=== PATIENT | male | born 1965 | race Caucasian/White ===

== ENCOUNTER 2017-10-24 05:43 | Day surgery (SDC) | payer OTHER ==
[~2017-10-24] VITALS: Ht 175.3 cm; Wt 106.6 kg
--- NOTE | ~2017-10-24 | OP ---
PATIENT NAME: ANIKA KAPLAN MEDICAL RECORD: [id number] :67 LOCATION:[facility] ADMISSION DATE: SURGEON: PRUDENCIO LEUNG DO DATE OF OPERATION: 10/24/2017 PROCEDURE PERFORMED: Right shoulder arthroscopy with subacromial decompression, labral debridement and bicep tenodesis. PREOPERATIVE DIAGNOSES: Right shoulder pain, SLAP tear, and partial rotator cuff tear on MRI. POSTOPERATIVE DIAGNOSES: SLAP tear, subacromial impingement, and no rotator cuff tear. INDICATIONS: Mr. Anika Kaplan is a 52-year-old male who presented to my office sometime ago with right shoulder pain. He had an MRI, which indicated a partial thickness tear of the rotator cuff. I informed him that we could try conservative management due to the fact the he is 52 and he had decent strength, but he has had pain with overhead motion and tried physical therapy and injection. We did that, he came back in September and said he wanted something over the shoulder. He was tired dealing with the pain, so he signed up for surgery today. DESCRIPTION OF PROCEDURE: The patient was given a block by anesthesia in the preoperative area and then taken to the OR suite, laid in the left lateral decubitus position with an axillary roll under left axilla. The right arm was prepped and draped in sterile fashion. The patient was given 900 mg of clindamycin preoperatively. After this was given, the arm was prepped and draped. A timeout was performed. Everyone was in agreement to the correct patient, the correct side, correct site, and correct procedure. After the timeout was performed, then procedure commenced with spinal needle into the right shoulder joint from the posterior aspect and inflating the joint with 60 mL of normal saline. After this was done, the posterior portal was established with an 11-blade scalpel and the trocar was entered into the joint. Camera was then entered in and a SLAP tear was seen right away and with some labral fraying. The anterior portal was established with a spinal needle and then an 11-blade scalpel. The trocar was then entered and the bicep tendon was lifted up and then SLAP tear was seen very well. Then, the bicep was brought into the joint with some fraying seen. The shoulder joint itself was inspected. The supraspinatus, infraspinatus, and subscapularis tendon were viewed and seemed to be very in good condition on the articular side and no tears whatsoever or any fraying whatsoever. After this was done, the burner was put into the shoulder joint and the bicep tendon was tenotomized at the attachment of the labrum. Then, the shaver was entered in the shoulder and the labrum was debrided, any of the fraying in the labrum was debrided at that time. I then entered the subacromial space. Lateral portal was established. A subacromial decompression was done first with the shaver cleaning out the bursa, which was quite thick and then cleaned off the acromion with a burner and then a bur to bur off the anterolateral aspect of the acromion, making it flat. After this was done, the AC joint was inspected and not to see no large spurs or stenosis was seen in that joint, so it was not decompressed. There was no distal clavicle excision done at that time. After subacromial decompression, the trocars were withdrawn and the camera was withdrawn and the bicep tenodesis began on the anterior aspect of the humerus just distal to the pectoralis major insertion. Incision was made on the skin. Careful dissection was made down to the bicep tendon OPERATIVE REPORT [id number] ANIKA KAPLAN and this was taken out of the wound and then whipstitched and a button was placed on that stitch. Then, a unicortical hole was made in the humerus and the biceps tendon button was put down into the humerus and toggled down. The biceps tendon laid flat on the humerus. Then, a free needle was used for the suture it over with the suture that had been placed through the button securing the bicep tendon to the humerus. This was tied down in the excess tendon and suture was cut at that time. The wound was thoroughly irrigated and then closed with 2-0 Vicryl in inverted interrupted fashion and then 4-0 Monocryl was run on the skin. Each of the portal sites anterior, lateral, and posterior were closed with 4-0 Monocryl in inverted interrupted pattern. Dermabond was then placed over each of the sites and then Adaptic, Telfa, and Tegaderm were placed over the wounds. The patient was placed into a sling and taken to recovery in stable condition. COMPLICATIONS: None. TRANSINT:[id number] Voice Confirmation ID: [id number] DOCUMENT ID: [id number] PRUDENCIO LEUNG DO at 1329 CC: [id number] DICTATION DATE: 10/24/17 1227 SHELL CORE AND MOLDING SUPERVISOR: 10/24/17 130[id number] [place] [address]
[2017-10-24 07:55] VITALS: BP 138/79; Ht 175.3 cm; Wt 106.6 kg
[2017-10-24] MEDS ORDERED: PERCOCET 7.5/321 TAB PO (12:20)
[2017-10-24] MEDS ORDERED: TORADOL10 MG PO (12:21)
== END 2017-10-24 14:10 | disposition home or self-care (01) ==
LOC: D.OPS 05:43 → D.PAN 09:00 → D.OPS 09:10 → D.PAN 11-03 09:00
DX: S43.431A Superior glenoid labrum lesion of right shoulder, initial encounter (principal); M75.41 Impingement syndrome of right shoulder; X58.XXXA Exposure to other specified factors, initial encounter; Z01.812 Encounter for preprocedural laboratory examination

== ENCOUNTER 2018-08-05 22:09 | Observation (INO) | payer OTHER ==
[~2018-08-05] VITALS: Ht 175.3 cm; Wt 106.8 kg
--- NOTE | ~2018-08-05 | MORECARE ---
CASE MANAGEMENT DISCHARGE SUMMARY PATIENT: ANIKA KAPLAN UNIT: [id number] ADM DATE: 08/05/18 AGE: 53 : [birth year] SEX: M ROOM/BED: D.2113 AUTHOR: MONISHA IVY PHYSICIAN: REFERRING PHYSICIAN: IZA WHIPPLE MD DATE OF SERVICE: 08/07/18 Discharge Plan Patient Name: ANIKA KAPLAN [facility] [facility] 1965 Planned Disposition: Home Anticipated Discharge Date: 08/06/18 Discharge Date: 08/06/2018 Expected LOS: 1 Initial Reviewer: [email or web address] Initial Review Date: 08/07/2018 Generated: 08/07/18 9:38 am Patient Name: ANIKA KAPLAN Page [id number] at 0838 All edits/amendments must be made on the electronic document DICTATION DATE: 08/07/18837 PLATE SETTER: JASMEET 08/07/18837 RPT#: [id number] DC DATE:08/06/18 STATUS: DIS IN [facility] [address] [place] [address] END OF REPORT
--- NOTE | ~2018-08-05 | HEMODYNAMI ---
PATIENT:ANIKA KAPLAN MEDICAL RECORD: [id number] : 67 LOCATION:[facility] D.2113 ADMISSION DATE: 08/05/18 Generatedon:08/06/201815:34 Patient name: ANIKA KAPLAN Patient #: [id number] SSN: : 1965 Date of study: 08/06/2018 Page: Of Hemodynamic Procedure Report Patient Data Patient Demographics Procedure consent was obtained First Name: ANIKA Gender: Male Last Name: [place] : 1965 Patient #: [id number] Age: 53 year(s) Race: Unknown Additional ID: [id number] Contact details [address]: [address] [place] [address] TRAIL State: [place] City: [place] Zip code: [address] Admission Admission Data Admission Date: 08/05/2018 Admission Time: 23:51 Room #: D.2113 Procedure Procedure Types Cath Procedure Diagnostic Procedure LHC LHC w/Coronaries Procedure Description Procedure Date Procedure Date: 08/06/2018 Procedure Start Time: 15:20 Procedure End Time: 15:31 Procedure Staff Name Function Pauly Salvador RT Monitor Vicente Mohr RN Nurse Irma Pack RT Scrub Antoine Norman MD Performing Physician Procedure Data Cath Procedure Fluoroscopy Diagnostic fluoroscopy Total fluoroscopy Time: 1.9 time: 1.9 min min Diagnostic fluoroscopy Total fluoroscopy dose: 703 dose: 703 mGy mGy Contrast Material Contrast Material Type Amount (ml) Isovue 300 85 Entry Location Entry Primary Successful Side Size Upsize Upsize Entry Closure Succes sful Closure Location (Fr) 1 (Fr) 2 (Fr) Remarks Device Remarks Femoral Right 5 Fr Exoseal artery Estimated blood loss: 10 ml Diagnostic catheters Device Type Used For End Catheter Placement MULTIPACK JL 4.0 5Fr Procedure catheter DIAGNOSTIC JL 5 5Fr Procedure catheter ([id number]) MULTIPACK 3DRC 5Fr Procedure catheter MULTIPACK Pigtail 5 Fr Procedure catheter Procedure Complications No complications Procedure Medications Medication Administration Route Dosage Oxygen etCO2 Nasal cannula 2 l/min Heparin Flush Bag added to field 2 bags (1000units/500ml NS) 0.9% NaCl I.V. 100 ml/hr Fentanyl I.V. 50 mcg Versed I.V. 1 mg Fentanyl I.V. 50 mcg Versed I.V. 1 mg Hemodynamics Rest Heart Rate: 87 (bpm) Pressure Samples Time Site Value (mmHg) Purpose Heart Use Rate(bpm) 15:28 LV 86/-3,0 Snapshot 79 15:29 LV 93/-2,1 Snapshot 77 Gradients Valve Time Site Site Mean SEP/DFP Peak To Heart Use 1 2 (mmHg) (sec/min) Peak Rate (mmHg) (bpm) Aortic 15:29 LV AO 77 Snapshots Pre Cath Intra NCS Post Cath Vital Signs Time Heart Resp SPO2 etCO2 NIBP (mmHg) Rhythm Pain Sedation Rate (ipm) (%) (mmHg) Status Level (bpm) 15:05:20 73 16 97 0 130/78(101) NSR 0 (11) 10(A) , No pain 15:09:27 70 16 98 29.6 134/83(102) NSR 0 (11) 10(A) , No pain 15:13:37 74 16 100 37.2 130/81(94) NSR 0 (11) 10(A) , No pain 15:17:51 60 17 98 31.8 123/83(107) NSR 0 (11) 10(A) , No pain 15:21:57 75 16 97 36.4 143/85(137) NSR 0 (11) 10(A) , No pain 15:26:11 73 16 100 36.4 131/82(109) NSR 0 (11) 10(A) , No pain 15:30:19 71 16 100 32.6 122/84(107) NSR 0 (11) 10(A) , No pain Medications Time Medication Route Dose Verified Delivered Reason Notes Effe ctiveness by by 15:06:02 Oxygen etCO2 2 Antoine Zhang Per Nasal l/min [facility] Moh[facility] RN physician cannula 15:06:10 Heparin Flush added 2 Antoine Zhang used for Bag to bags [facility] Moh[facility] RN procedure (1000units/500ml field NS) 15:06:18 0.9% NaCl I.V. 100 Antoine Zhang Per ml/hr [facility] Mohr RN physician 15:14:24 Fentanyl I.V. 50 Antoine Zhang for [facility] [facility] RN sedation 15:14:30 Versed I.V. 1 mg Antoine Zhang for [facility] RN sedation 15:17:55 Fentanyl I.V. 50 Antoine Zhang for [facility] [facility] Mohr RN sedation 15:17:58 Versed I.V. 1 [address] Zhang for [facility] RN sedation Procedure Log Time Note 14:40:54 Vicente Mohr RN sent for patient. Start room use. 14:55:36 Diagnostic Cath status Elective 14:55:55 Time tracking: Regular hours (M-F 7:00 - 5:00) 14:56:01 Plan of Care:Hemodynamics will remain stable., Cardiac rhythm will remain stable., Comfort level will be maintained., Respiratory function will remain adequate., Patient/ family verbilizes understanding of procedure., Procedure tolerated without complication., Recovers from procedure without complications.. 14:56:25 Patient received from Med II to [facility]] 2 Alert and oriented. Tansferred to table in Supine position. 14:56:26 Warm blankets applied, and mercedes hugger turned on for patient comfort. 14:56:27 Correct patient and procedure confirmed by team. 14:56:32 Signed procedure consent form obtained from patient. 15:04:14 ECG and BP/O2 sat monitors applied to patient. 15:04:14 Vital chart was started 15:04:15 Baseline sample Acquired. 15:04:19 Rhythm: sinus rhythm 15:04:20 Full Disclosure recording started 15:04:24 H&P Date Dictated: 08/06/2018 New H&P dictated by physician.. 15:04:25 Pre-procedure instructions explained to patient. 15:04:26 Pre-op teaching completed and patient verbalized understanding. 15:04:27 Family in waiting room. 15:04:29 Patient NPO since Midnight. 15:04:31 Is the patient allergic to Iodine/contrast media? No. 15:04:32 Was the patient premedicated? No 15:04:35 Is patient on blood thinner?No 15:04:37 Patient diabetic? No. 15:04:39 Previous problem with sedation/anesthesia? No ? 15:04:41 Snore? Yes 15:04:42 Sleep apnea? Yes 15:04:43 Deviated septum? No 15:04:44 Opens mouth fully? Yes 15:04:44 Sticks out tongue? Yes 15:04:46 Airway obstruction? No ? 15:04:48 Dentures? No ? 15:04:52 Pre procedure: right dorsailis pedis pulse 2+ Normal; easily identifiable; not easily obliterated 15:04:54 Pre procedure: left dorsailis pedis pulse 2+ Normal; easily identifiable; not easily obliterated 15:04:56 Patient pain scale 0/10 ?. 15:04:59 Modified Manuel's test Radial > 7 seconds. 15:05:04 IV patent on arrival in left forearm with 0.9% NaCl at [facility]. 15:05:07 Lab results completed and on chart. 15:05:12 Right groin area was prepped with chlora-prep and draped in sterile fashion 15:05:13 Alarms reviewed by R. N. 15:05:13 Sharps counted by scrub and verified by R.N. 15:06:02 Oxygen 2 l/min etCO2 Nasal cannula was administered by Vicente Mohr RN; Per physician; 15:06:10 Heparin Flush Bag (1000units/500ml NS) 2 bags added to field was administered by Vicente Mohr RN; used for procedure; 15:06:18 0.9% NaCl 100 ml/hr I.V. was administered by Vicente Mohr RN; Per physician; 15:10:07 Physician arrived 15:10:08 --------ALL STOP TIME OUT------ 15:10:09 Final Timeout: patient, procedure, and site verified with staff and physician. All members of the team are in agreement. 15:10:11 Right groin site verified by team. 15:10:16 Physical assessment completed. ASA score P 2 - A patient with mild systemic disease as per Antoine Norman MD. 15:10:20 Sedation plan: IV Moderate Sedation Medication:Versed, Fentanyl 15:10:25 Use device set Femoral Dx 15:10:26 ACIST Syringe (84303) opened to sterile field. 15:10:26 Bag Decanter () opened to sterile field. 15:10:27 Medline Cath Pack ([id number]) opened to sterile field. 15:10:27 DIAGNOSTIC WIRE .035 260cm J wire (695365) opened to sterile field. 15:10:28 ACIST Hand Control (97319) opened to sterile field. 15:10:29 ACIST Manifold (29214) opened to sterile field. 15:10:29 DIAGNOSTIC Multipack 5Fr catheter set (LV2258) opened to sterile field. 15:10:29 Tegaderm 4 x 4 (1626W) opened to sterile field. 15:10:31 PERCUTANEOUS ENTRY 19GA needle opened to sterile field. 15:10:33 SHEATH Prelude 5Fr 0.035 (TTJ-0I-[id number]) opened to sterile field. 15:14:24 Fentanyl 50 mcg I.V. was administered by Vicente Mohr RN; for sedation; 15:14:30 Versed 1 mg I.V. was administered by Vicente Mohr RN; for sedation; 15:17:55 Fentanyl 50 mcg I.V. was administered by Vicente Mohr RN; for sedation; 15:17:58 Versed 1 mg I.V. was administered by Vicente Mohr RN; for sedation; 15:19:09 Procedure started. 15:20:28 Local anesthetic to right femoral artery with Lidocaine 2% by Antoine Norman MD.INITIAL ACCESS ONLY 15:21:06 A 5 Fr sheath was inserted into the Right Femoral artery 15:21:41 A MULTIPACK JL 4.0 5Fr catheter was advanced over the wire and used for Procedure. 15:22:02 Zero performed for pressure channel P1 15:24:07 LCA angiography performed. 15:24:08 Catheter removed. 15:24:21 A DIAGNOSTIC JL 5 5Fr catheter ([id number]) was advanced over the wire and used for Procedure. 15:25:01 LCA angiography performed. 15:26:18 Catheter removed. 15:26:30 A MULTIPACK 3DRC 5Fr catheter was advanced over the wire and used for Procedure. 15:27:10 RCA angiography performed. 15:27:12 Catheter removed. 15:27:19 A MULTIPACK Pigtail 5 Fr catheter was advanced over the wire and used for Procedure. 15:27:32 LV angiography performed. 15:28:07 EXOSEAL 5Fr (EX500) opened to sterile field. 15:29:23 EF : 55 % 15:29:35 Catheter removed. 15:29:46 Sheath removed intact; hemostasis achieved with Exoseal to the Right Femoral artery. 15:29:49 Procedure ended.(Physican Out) 15:29:59 Fluoroscopy time 01.90 minutes. 15:30:02 Fluoroscopy dose: 703 mGy 15:30:02 Flurop Dose total: 703 15:30:10 Contrast amount:Isovue 300 85ml. 15:30:13 Sharps counted by scrub and verified by R.N. 15:30:14 Insertion/operative site no bleeding no hematoma. 15:30:20 Post-op/insertion site Right Femoral artery dressed using a 4 x 4 and Tegaderm. 15:30:22 Post Procedure Pulses reassessed and unchanged 15:30:28 Post-procedure physical assessment completed. ASA score P 2 - A patient with mild systemic disease as per Antoine Norman MD. 15:30:32 Post procedure rhythm: unchanged. 15:31:04 Estimated blood loss: 10 ml 15:31:05 Post procedure instruction explained to patient.Patient verbalizes understanding. 15:31:12 Procedure and supply charges have been captured, reviewed, submitted and are correct. 15:31:27 Procedure Complication : No complications 15:31:30 Vital chart was stopped 15:31:31 See physician's report for complete and final results. 15:31:38 Procedure ended. 15:31:38 Full Disclosure recording stopped 15:31:42 End room use (Document Last) Device Usage Item Name Manufacture Quantity Catalog Number Hospital Part Current M inimal Lot# / Charge Number Stock Stock Serial# Code ACIST Syringe Acist 1 85024 197117 362079 901698 2 0 (02245) Medical Systems [place] Bag Decanter Microtek 1 563818 03330 772391 5 () Medical Inc. Medline Cath Medline 1 [id number] 157525 34357 199119 5 Pack ([id number]) DIAGNOSTIC WIRE [facility] 1 685733 402785 398051 838124 3 0 .035 260cm J wire (317499) ACIST Hand Acist 1 70741 883749 857381 527737 5 Control (91615) Medical Systems Inc ACIST Manifold Acist 1 28519 416081 930809 058234 5 (90087) Medical Systems [employer] DIAGNOSTIC Cardinal 1 [id number] 626406 94873 521391 3 0 Multipack 5Fr Health catheter set ([id number]) Tegaderm 4 x 4 3M 1 1626W 600322 290023 390789 5 (1626W) PERCUTANEOUS Cook Medical 1 [id number] 135001 286038 5 ENTRY 19GA needle SHEATH Prelude Merit 1 [id number]-[id number] 013793 990519 850614 5 5Fr 0.035 Medical ([id number]) MULTIPACK JL Cardinal 1 965603 5 4.0 5Fr Health catheter DIAGNOSTIC JL 5 Cardinal 1 [id number] 257941 487142 408004 5 5Fr catheter Health (149894W) MULTIPACK 3DRC Cardinal 1 957144 5 5Fr catheter Health MULTIPACK Cardinal 1 448427 5 Pigtail 5 Fr Health catheter EXOSEAL 5Fr Cardinal 1 EX500 547832 259322 319697 1 0 (EX500) Health Signature Audit [place] Stage Time Signature Unsigned Intra-Procedure 08/06/2018 Pauly Salvador 3:34:10 PM RT(R) Signatures Monitor : Pauly Salvador Signature : RT Date : Time : [id number] [place] [address]
--- NOTE | ~2018-08-05 | OP ---
PATIENT NAME: ANIKA KAPLAN MEDICAL RECORD: [id number] :67 LOCATION:D.M2 D.2113 ADMISSION DATE:08/05/18 SURGEON: BURT GEE MD DATE OF OPERATION: 08/06/2018 PROCEDURE: Left heart catheterization, selective coronary angiography, right femoral approach. CATHETERS: A 5-Guine[place] sheath, 5/4 left and right Toma, 5/4 pig. The procedure was well tolerated. The patient was returned to the robb. Sheath was removed. ExoSeal device was placed. FINDINGS: Left ventriculography in 30-degree EDEN view: Normal wall motion. Normal systolic function. CORONARY ANATOMY: LEFT MAIN: Left main is free of disease. LAD: Free of disease in the diagonal system. CIRCUMFLEX: Free of disease in the marginal system. RIGHT CORONARY ARTERY: Dominant artery, gives rise to PDA, free of disease. IMPRESSION: Normal LV systolic function. Normal coronary anatomy. TRANSINT:[id number] Voice Confirmation ID: [id number] DOCUMENT ID: [id number] BURT GEE MD at 0802 CC: [id number] DICTATION DATE: 08/06/18 1538 CERTIFIED FORKLIFT OPERATOR: 08/06/18 1723 DIS IN 08/06/18 [facility] [address] [place] [address]
[~2018-08-05 22:09] MED LIST: PERCOCET 7.5/321 TAB PO; TORADOL10 MG PO
[2018-08-05] MEDS ORDERED: MUPIROCIN22 GM TOPICAL (22:26)
[2018-08-05] MEDS ORDERED: ADIPEX-P37.5 MG PO (22:27)
[2018-08-05] MEDS ORDERED: KEFLEX500 MG PO (22:27)
[2018-08-05] MEDS ORDERED: COZAAR50 MG PO (22:27)
[2018-08-05 22:40] LABS: BASOPHILS 0.7 % (0-2); EOSINOPHILS 4.5 % (0-7); HEMATOCRIT 41.6 % (42.0-54.0); HEMOGLOBIN 13.5 g/dL (13.5-17.5); IMMATURE GRANULOCYTES 0.3 % (0-5); LYMPHOCYTES 31.6 % (15-50); MCH 25.7 pg (26.0-34.0); MCHC 32.5 g/dL (31.0-37.0); MCV 79.2 fL (80.0-100.0); MEAN PLATELET VOLUME 10.9 fL (7.4-10.4); MONOCYTES 9.2 % (2-11); NEUTROPHILS 53.7 % (40-80); PLATELET COUNT 314 10x3/uL (130-400); RBC 5.25 10x6/uL (4.20-6.10); RDW 15.4 % (11.5-14.5); WBC 6.9 10x3/uL (4.8-10.8)
[2018-08-05 23:04] LABS: ALBUMIN 4.1 g/dL (3.4-5.0); ALKALINE PHOSPHATASE 76 U/L (46-116); ALT (SGPT) 35 U/L (10-68); BILIRUBIN - TOTAL 0.97 mg/dL (0.2-1.3); CALC OSMOLALITY 278 mosm/kg (275-300); CALCIUM 8.9 mg/dL (8.5-10.1); CARBON DIOXIDE 26.7 mmol/L (21.0-32.0); CHLORIDE - SERUM 103 mmol/L (98-107); CREATININE - SERUM 1.1 mg/dL (0.6-1.3); GLUCOSE 101 mg/dL (74-106); POTASSIUM - SERUM 3.7 mmol/L (3.5-5.1); PROTEIN - SERUM 7.9 g/dL (6.4-8.2); SODIUM 139 mmol/L (136-145); UREA NITROGEN 15 mg/dL (7-18); eGFR NON AFRICAN AMERICAN 75 mL/min (90-120)
[2018-08-05 23:14] LABS: CKMB 0.5 U/L (0.0-3.6); LIPASE 204 U/L (73-393); TROPONIN-I < 0.017 ng/mL (0.000-0.060)
[2018-08-05 23:15] LABS: CREATINE KINASE 880 UL (21-232)
[2018-08-06] VITALS (11 sets, daily range): BP systolic 103–144; BP diastolic 40–85; Ht 175.3 cm; Wt 106.8 kg
[2018-08-06 08:54] LABS: BASOPHILS 0.7 % (0-2); EOSINOPHILS 4.6 % (0-7); HEMATOCRIT 38.8 % (42.0-54.0); HEMOGLOBIN 12.2 g/dL (13.5-17.5); IMMATURE GRANULOCYTES 0.2 % (0-5); LYMPHOCYTES 27.9 % (15-50); MCH 25.2 pg (26.0-34.0); MCHC 31.4 g/dL (31.0-37.0); MEAN PLATELET VOLUME 10.7 fL (7.4-10.4); MONOCYTES 9.6 % (2-11); PLATELET COUNT 278 10x3/uL (130-400); RBC 4.85 10x6/uL (4.20-6.10); RDW 15.5 % (11.5-14.5); WBC 6.1 10x3/uL (4.8-10.8)
[2018-08-06 08:58] LABS: ANION GAP 14.1 mmol/L (8-16); CALCIUM 8.6 mg/dL (8.5-10.1); CREATININE - SERUM 1.1 mg/dL (0.6-1.3); POTASSIUM - SERUM 4.1 mmol/L (3.5-5.1)
[2018-08-06] MEDS ORDERED: LIPITOR10 MG PO (16:16)
== END 2018-08-06 18:19 | disposition home or self-care (01) ==
LOC: D.ER 22:09 → D.M2 23:51 → OBSVTIME 23:52 → D.M2 08-06 18:19
PROVIDERS: Family Medicine; Internal Medicine Interventional Cardiology
DX: R07.89 Other chest pain (principal); I10 Essential (primary) hypertension; R61 Generalized hyperhidrosis; G47.30 Sleep apnea, unspecified; E78.5 Hyperlipidemia, unspecified